=== PATIENT | female | born 1935 | race Caucasian/White ===

== ENCOUNTER 2017-11-27 07:55 | Day surgery (SDC) | payer MEDICARE, OTHER ==
[2017-11-26 10:34] LABS: BASOPHILS 0.2 % (0-2); EOSINOPHILS 2.4 % (0-7); HEMATOCRIT 40.3 % (36.0-48.0); HEMOGLOBIN 14.2 g/dL (12-16); IMMATURE GRANULOCYTES 0.2 % (0-5); MCH 32.9 pg (26.0-34.0); MCHC 35.2 g/dL (31.0-37.0); MCV 93.5 fL (80.0-100.0); MEAN PLATELET VOLUME 10.3 fL (7.4-10.4); MONOCYTES 10.2 % (2-11); RBC 4.31 10x6/uL (4.00-5.40); RDW 12.7 % (11.5-14.5); WBC 6.7 10x3/uL (4.8-10.8)
[2017-11-26 10:42] LABS: PLATELET COUNT 244 10x3/uL (130-400)
[2017-11-26 10:47] LABS: ANION GAP 12.2 mmol/L (8-16); CALCIUM 9.5 mg/dL (8.5-10.1); CARBON DIOXIDE 29.6 mmol/L (21.0-32.0); CREATININE - SERUM 0.8 mg/dL (0.6-1.3); POTASSIUM - SERUM 3.8 mmol/L (3.5-5.1)
[~2017-11-27] VITALS: Ht 157.5 cm; Wt 63.5 kg
--- NOTE | ~2017-11-27 | OP ---
PATIENT NAME: CALLY GARNER MEDICAL RECORD: [id number] :39 LOCATION:D.OPS ADMISSION DATE: SURGEON: RISHABH HERNANDEZ MD DATE OF OPERATION: 11/27/2017 PREOPERATIVE DIAGNOSES: 1. Internal hemorrhoids. 2. Hypertension. 3. Diabetes mellitus. POSTOPERATIVE DIAGNOSES: 1. Internal hemorrhoids. 2. Hypertension. 3. Diabetes mellitus. PROCEDURE: 1. PPH stapled hemorrhoidectomy. 2. Excision of anal skin tag. SURGEON: Rishabh Hernandez MD REPORT OF PROCEDURE: The patient's perianal region was prepped and draped in sterile fashion. The patient had a decent size skin tag present in the left inferior buttock and this was removed with electrocautery without complication. There was no sign of any bleeding. We then performed an anal exam under anesthesia with a Dustin-Clarke retractor. We were able to do a 360 degree inspection and really there were not any enlarged internal hemorrhoids at this time. The patient did have an enlarged anal skin tag on the inferior right side due to the fact the patient had pronounced internal hemorrhoids on her colonoscopy, decision was made just to go ahead and do a PPH stapled hemorrhoidectomy. The PPH anoscope was inserted and sutured down on all 4 sides using interrupted 0 silks, then a 2-0 Prolene was used to make a pursestring inside the distal rectum. The PPH stapler was inserted and the pursestring was pulled in tightly. We then fired the stapler and removed a good ring of tissue. There was some bleeding from the inferior right aspect, anterior right aspect, and this was tied off with 2-0 chromic. At this point, there was no sign of any active bleeding. The skin tags had been pulled down into the anal region at this point. At this point, we inserted a piece of Gelfoam dipped in [place]. The anoscope was then removed. COMPLICATIONS: None. CONDITION: Stable. ANESTHESIA: General endotracheal. BLOOD LOSS: Minimal. TRANSINT:[id number] Voice Confirmation ID: [id number] DOCUMENT ID: [id number] OPERATIVE REPORT [id number] CALLY GARNER RISHABH HERNANDEZ MD at 0931 CC: JACQUES PIZANO MD and BART ROPER MD [id number] DICTATION DATE: 11/27/17 3390 CAREER TECHNICAL COUNSELOR: 11/27/17 1520 [facility] 11/27/17 [place] [id number] [facility] [place] [address]
[~2017-11-27 07:55] MED LIST: ASPIRIN EC81 M1 PO; CALCIUM; CALTRATE 600 M600 M1 PO; CO Q-10400 MG PO; DYAZIDE 37.5/251 CAP PO; FOLTX TABLET1 EACH PO; LIPITOR20 MG PO; METFORMIN HCL500 M1 PO; MULTIPLE VITAMI1 TA1 PO; PEPCID20 MG PO; SYNTHROID50 MCG PO; TRICOR145 MG PO; VITAMIN B-121000 MCG PO
[2017-11-27 08:26] VITALS: BP 120/63; Ht 157.5 cm; Wt 63.5 kg
[2017-11-27] MEDS ORDERED: HYDROCODONE-APA1 TAB PO (10:40)
== END 2017-11-27 13:20 | disposition home or self-care (01) ==
LOC: D.OPS 07:55 → D.PAN 12:45 → D.OPS 13:20 → D.PAN 15:45
PROVIDERS: Surgery
DX: K64.8 Other hemorrhoids (principal); I25.10 Atherosclerotic heart disease of native coronary artery without angina pectoris; I10 Essential (primary) hypertension; E03.9 Hypothyroidism, unspecified; G47.30 Sleep apnea, unspecified; K21.9 Gastro-esophageal reflux disease without esophagitis; E11.9 Type 2 diabetes mellitus without complications; Z01.812 Encounter for preprocedural laboratory examination

== ENCOUNTER 2017-11-28 02:41 | Emergency (ER) | payer MEDICARE, OTHER ==
[2017-11-27 08:26] VITALS: BMI 25.6
[~2017-11-28 02:41] MED LIST changes: +HYDROCODONE-APA1 TAB PO
[2017-11-28 03:16] LABS: APPEARANCE CLEAR (CLEAR); COLOR YELLOW (YELLOW)
[2017-11-28 03:17] LABS: BILIRUBIN NEGATIVE (NEGATIVE); GLUCOSE 50 mg/dL (NEGATIVE); KETONE NEGATIVE (NEGATIVE); NITRITE NEGATIVE (NEGATIVE); PROTEIN NEGATIVE (NEGATIVE); SPECIFIC GRAVITY 1.015 (1.005-1.020); UROBILINOGEN NORMAL (NORMAL)
== END 2017-11-28 04:00 | disposition home or self-care (01) ==
LOC: D.ER 02:41
PROVIDERS: Family Medicine
DX: R33.9 Retention of urine, unspecified (principal); I10 Essential (primary) hypertension; E11.9 Type 2 diabetes mellitus without complications

== ENCOUNTER → 2018-11-10 11:52 | Outpatient (CLI) | payer MEDICARE, OTHER ==
[2017-11-27 08:26] VITALS: BMI 25.6
== END | disposition home or self-care (01) ==
LOC: D.US 11:52
DX: R60.0 Localized edema (principal); M79.604 Pain in right leg